=== PATIENT | male | born 1950 | race Caucasian/White ===

== ENCOUNTER 2020-04-13 15:26 | Inpatient (IN) ==
[2020-04-13 16:01] LABS: Basophils # 0.1 10*3/uL (0.0-0.2); Basophils % 0.7 % (0.0-0.8); Eosinophils # 0.2 10*3/uL (0.0-0.87); Hematocrit 44.4 VOL% (42.0-52.0); Hemoglobin 14.6 GM/DL (14.0-18.0); Immature Granulocytes % 0.3 %; Immature Granulocytes Absolute 0.02 #; Lymphocytes # 1.5 10*3/uL (1.4-4.0); Lymphocytes % 19.5 % (21.2-54.2); Mean Corpuscular HGB Conc 32.9 GM/DL (32-36); Mean Corpuscular Volume 90.1 FL (87-102); Monocytes % 8.4 % (1.7-12.7); Neutrophils % 69.1 % (38.7-73.9); Platelet Count 238 T/CUMM (130-400); Red Blood Count 4.93 MC/CUMM (3.8-5.5); Red Cell Distribution Width 13.5 % (9.3-17.3); White Blood Count 7.7 T/CUMM (4-12)
[2020-04-13 16:14] LABS: Albumin 3.6 G/DL (3.4-5.0); Bilirubin,Total 0.6 MG/DL (0.2-1.0); Potassium 3.7 MMOL/L (3.5-5.1); Total Protein 7.9 G/DL (6.4-8.3)
[2020-04-13] MEDS ORDERED: ENOXAPARIN 100 MG/ML SYRINGE SUBCUT STA (17:01)
[2020-04-13] MEDS ORDERED: NITROGLYCERIN SL 0.4 MG TABLET SL STA (17:35)
[2020-04-13] MEDS ORDERED: GLUCAGON 1 MG VIAL IM PRN (17:53)
[2020-04-13] MEDS ORDERED: DEXTROSE 50% 25 GM/50 ML VIAL IV PRN (17:53)
[2020-04-13] MEDS ORDERED: HEPARIN DRIP 25,000 UNITS/500 ML PREMIX IV SCH (18:00)
[2020-04-13] MEDS: SODIUM CHLORIDE 0.9% 1,000 ML IV SCH (18:22)
[2020-04-13] MEDS: ISOSORBIDE MONONITRATE 30 MG TABLET PO SCH (19:36)
[2020-04-13] MEDS: METOPROLOL TARTRATE 50 MG TABLET PO SCH (23:23)
[2020-04-14] MEDS: NITROGLYCERIN SL 0.4 MG TABLET SL PRN ×3 (02:29→22:30)
[2020-04-14 05:11] LABS: Basophils # 0.1 10*3/uL (0.0-0.2); Basophils % 0.7 % (0.0-0.8); Eosinophils # 0.1 10*3/uL (0.0-0.87); Hemoglobin 12.4 GM/DL (14.0-18.0); Immature Granulocytes % 0.4 %; Immature Granulocytes Absolute 0.03 #; Lymphocytes # 1.1 10*3/uL (1.4-4.0); Lymphocytes % 15.5 % (21.2-54.2); Mean Corpuscular HGB Conc 31.8 GM/DL (32-36); Mean Corpuscular Volume 91.1 FL (87-102); Mean Platelet Volume 9.9 FL (9.6-12.0); Monocytes % 9.6 % (1.7-12.7); Neutrophils % 71.8 % (38.7-73.9); Platelet Count 198 T/CUMM (130-400); Red Blood Count 4.28 MC/CUMM (3.8-5.5); Red Cell Distribution Width 13.7 % (9.3-17.3); White Blood Count 7.1 T/CUMM (4-12)
[2020-04-14 05:47] LABS: Calcium 8.4 MG/DL (8.5-10.1); Osmolality,Calculated 279.7 MOS/KG (273-304); Potassium 3.6 MMOL/L (3.5-5.1); Risk Ratio 5.1; Thyroid Stimulating Hormone 2.25 uIU/ml (0.358-3.74); VLDL CHOLESTEROL 31.8 MG/DL
[2020-04-14] MEDS: ACETAMINOPHEN 325 MG TABLET PO PRN ×2 (06:56→22:30)
[2020-04-14] MEDS: SODIUM CHLORIDE 0.9% 1,000 ML IV SCH (08:38)
[2020-04-14] MEDS: ASPIRIN EC 81 MG TABLET PO SCH (09:00)
[2020-04-14] MEDS: ATORVASTATIN 80 MG TABLET PO SCH (09:00)
[2020-04-14] MEDS: ISOSORBIDE MONONITRATE 30 MG TABLET PO SCH (09:00)
[2020-04-14] MEDS ORDERED: ATORVASTATIN 10 MG TABLET PO SCH (09:00)
[2020-04-14] MEDS: PANTOPRAZOLE 40 MG TABLET PO SCH (09:01)
[2020-04-14] MEDS: TRIAMTERENE/HCTZ 37.5-25 MG TABLET PO SCH (09:01)
[2020-04-14] MEDS: METOPROLOL TARTRATE 50 MG TABLET PO SCH ×2 (09:48→22:00)
[2020-04-14] MEDS: DILTIAZEM CD 180 MG CAPSULE PO SCH (09:48)
[2020-04-14] MEDS ORDERED: HEPARIN/NACL 0.9% 2 UNITS/ML 1,000 ML IV ONE (11:18)
[2020-04-14] MEDS ORDERED: LIDOCAINE 1% 20 ML VIAL ONE (11:19)
[2020-04-14] MEDS ORDERED: VERAPAMIL 5 MG/2 ML VIAL ONE (11:29)
[2020-04-14] MEDS ORDERED: NITROGLYCERIN DRIP 50 MG/250 ML BOTTLE IV ONE (11:29)
[2020-04-14] MEDS ORDERED: HYDROmorphone 2 MG/1 ML VIAL ONE (11:42)
[2020-04-14] MEDS ORDERED: MIDAZOLAM 2 MG/2 ML VIAL ONE (11:42)
[2020-04-14] MEDS ORDERED: DIAZEPAM 5 MG TABLET ONE (11:43)
[2020-04-14] MEDS ORDERED: diphenhydrAMINE 50 MG/1 ML VIAL ONE (11:43)
[2020-04-14] MEDS ORDERED: NITROGLYCERIN SL 0.4 MG TABLET SL ONE ×3 (12:08→12:23)
[2020-04-14] MEDS ORDERED: BIVALIRUDIN 250 MG VIAL IV ONE (12:12)
[2020-04-14] MEDS ORDERED: TICAGRELOR 90 MG TABLET ONE (12:16)
[2020-04-14] MEDS ORDERED: SODIUM CHLORIDE 0.9% 1,000 ML IV SCH (13:00)
[2020-04-14] MEDS: ALPRAZolam 0.5 MG TABLET PO SCH ×2 (17:20→22:01)
[2020-04-14] MEDS: TICAGRELOR 90 MG TABLET PO SCH (22:00)
[2020-04-15] MEDS ORDERED: ZALEPLON 5 MG CAPSULE PO PRN (01:11)
[2020-04-15 04:16] LABS: Basophils % 0.5 % (0.0-0.8); Eosinophils # 0.1 10*3/uL (0.0-0.87); Eosinophils % 1.5 % (0.00-10.9); Hematocrit 38.2 VOL% (42.0-52.0); Hemoglobin 12.5 GM/DL (14.0-18.0); Immature Granulocytes % 0.2 %; Immature Granulocytes Absolute 0.02 #; Lymphocytes % 11.7 % (21.2-54.2); Mean Corpuscular HGB Conc 32.7 GM/DL (32-36); Mean Corpuscular Volume 90.1 FL (87-102); Mean Platelet Volume 10.1 FL (9.6-12.0); Neutrophils % 75.1 % (38.7-73.9); Platelet Count 195 T/CUMM (130-400); Red Blood Count 4.24 MC/CUMM (3.8-5.5); Red Cell Distribution Width 13.6 % (9.3-17.3); White Blood Count 8.2 T/CUMM (4-12)
[2020-04-15 04:47] LABS: Calcium 8.7 MG/DL (8.5-10.1); Potassium 3.9 MMOL/L (3.5-5.1)
[2020-04-15 04:50] LABS: Blood Urea Nitrogen 19 MG/DL (7-18); Calcium 8.9 MG/DL (8.5-10.1); Carbon Dioxide 27 MMOL/L (21-32); Estimated Glom Filtration Rate 52 ML/MIN; Glucose 100 MG/DL (74-106); Potassium 3.9 MMOL/L (3.5-5.1); Sodium 136 MMOL/L (136-145); Troponin I 0.425 NG/ML (0.00-0.045)
[2020-04-15] MEDS: NITROGLYCERIN SL 0.4 MG TABLET SL PRN (08:52)
[2020-04-15] MEDS: TICAGRELOR 90 MG TABLET PO SCH (09:11)
[2020-04-15] MEDS: ISOSORBIDE MONONITRATE 30 MG TABLET PO SCH (09:11)
[2020-04-15] MEDS: DILTIAZEM CD 180 MG CAPSULE PO SCH (09:11)
[2020-04-15] MEDS: ATORVASTATIN 80 MG TABLET PO SCH (09:11)
[2020-04-15] MEDS: TRIAMTERENE/HCTZ 37.5-25 MG TABLET PO SCH (09:11)
[2020-04-15] MEDS: ASPIRIN EC 81 MG TABLET PO SCH (09:11)
[2020-04-15] MEDS: METOPROLOL TARTRATE 50 MG TABLET PO SCH (09:11)
[2020-04-15] MEDS: ALPRAZolam 0.5 MG TABLET PO SCH (09:12)
[2020-04-15] MEDS: PANTOPRAZOLE 40 MG TABLET PO SCH (09:12)
[2020-04-15 09:16] VITALS: BP 148/67
== END 2020-04-15 10:55 | disposition home or self-care (01) | DRG 247 ==
LOC: N.ED 15:26 → N.EDINP 17:53 → N.TELES 22:38
PROVIDERS: ADMIT Internal Medicine; ATTEND Internal Medicine